=== PATIENT | male | born 1975 | race Caucasian/White ===

== ENCOUNTER 2023-10-22 09:31 | Outpatient (AMB) | payer OTHER, SELFPAY ==
[2023-10-22 09:35] VITALS: BP 112/68; PULSE 81; TEMP 36.8; O2SAT 98; BMI 30.7
--- NOTE | 2023-10-22 09:35 | MHC.PC.OV ---
Vital Signs 10/22/23 09:35 Height 5 ft 6 in Weight 190 lb 6 oz BMI 30.7 BP 112/68 Blood Pressure Location Lt brachial Position Sitting Pulse 81 Pulse Source Pulse Oximeter Temp 98.3 F Temp Source Oral Pulse Oximetry (%) 98 Oxygen Delivery Method Room Air Intake Visit Reasons: New patient-req physical Intake Note: Patient is here to establish care, last seen at [facility] a year ago. Patient would like refill on his Levothyroxine. Allergies No Known Allergies Allergy (Verified 10/22/23 09:38) Tobacco use date assessed: 10/22/23 Dental Screening Dental Screen Date: 10/22/23 Did you have a dental visit in the last 12 months?: Yes Did you have a dental problem in the last 6 months where you did not have access to dental care?: No Was dental information given to patient?: Patient has dentist HPI New patient-req physical HPI Details New patient Prior PCP:? [facility] Last office visit/CPE:??1?year?ago Acute issue(s): Refills?on?levothyroxine PMHx: ?Hypothyroid, GERD - resolved SurgHx: Cyst removal FHx: Mom: HTN, Thyroid dz. Dad: HTN, Thyroid Dz, Pancreatic CA SocHx: Nonsmoker. EtOH 3-4x a month. 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 1. Little interest or pleasure in doing things: not at all 2. Feeling down, depressed, or hopeless: not at all 3. Trouble falling or staying asleep, or sleeping too much: nearly every day 4. Feeling tired or having little energy: not at all 5. Poor appetite or overeating: not at all 6. Feeling bad about yourself - or that you are a failure or have let yourself or your family down: not at all 7. Trouble concentrating on things, such as reading the newspaper or watching television: not at all 8. Moving or speaking so slowly that other people could have noticed. Or the opposite - being so fidgety or restless that you have been moving around a lot more than usual: not at all 9. Thoughts that you would be better off or of hurting yourself in some way: not at all Total score: 3 Source: Developed by Drs. Omar Munoz, Tiara Chandler, Choco Reid and colleagues, with an educational pattie from [employer]. Thrive Questionnaire Date Thrive assessed: 10/22/23 I am a: Patient What is your living situation today?: I have a steady place to live Within the past 12 months, did the food you bought not last and you didn't have the money to get more?: Never true Within the past 12 months, did you worry whether your food would run out before you got money to buy more?: Never true Do you have trouble paying for medicines?: No Do you have trouble getting transportation to medical appointments?: No Do you have trouble paying your heating and electricity bill?: No Do you have trouble taking care of your child, family member or friend?: No Do you have trouble with day-to-day activities such as bathing, preparing meals, shopping, managing finances, etc.?: No Are you currently unemployed and looking for a job?: No Are you interested in more education?: No AUDIT C Alcohol Use Questionnaire (AUDIT-C) 1. How often do you have a drink containing alcohol?: 2-4 times a month 2. How many drinks containing alcohol do you have on a typical day when you are drinking?: 3 or 4 3. How often do you have six or more drinks on one occasion?: Less than monthly Total Score: 4 PABLO-7 AMB Questionnaire PABLO-7 Date PABLO - 7 assessed: 10/22/23 Feeling nervous, anxious, or on edge: 0 = Not at all Not being able to stop or control worryin = Not at all Worrying too much about different things: 3 = Nearly every day Trouble relaxin = Not at all Being so restless that it is hard to sit still: 0 = Not at all Becoming easily annoyed or irritable: 0 = Not at all Feeling afraid as if something awful might happen: 0 = Not at all Total PABLO-7 score (0-4 normal; 5-9 mild; 10-14 moderate; 15-21 severe): 3 Source: Developed by Drs. Omar Munoz, Tiara Chandler, Choco Reid and colleagues, with an educational pattie from [employer]. Review of Systems Const Denies chills, Denies fatigue, Denies fever(s), Denies headache(s) and Denies weakness ENT Denies dizziness and Denies headache(s) Card Denies chest pain, Denies lightheadedness, Denies dyspnea and Denies other (Palpitations) Resp Denies cough, Denies dyspnea, Denies wheezing and Denies other ( shortness of breath) Musc Denies numbness and Denies tingling Neuro Denies dizziness, Denies headache(s), Denies numbness, Denies tingling, Denies paresthesias and Denies weakness Psych Denies anxiety and Denies depression Endo Denies fatigue Aller/Immun Denies wheezing Physical exam (Primary Care) Vital Signs: Last Vital Signs Temp 98.3 F 10/22/23 09:35 Pulse 81 10/22/23 09:35 BP 112/68 10/22/23 09:35 Pulse Ox 98 10/22/23 09:35 Oxygen Delivery Method Room Air 10/22/23 09:35 BMI result Body Mass Index 30.7 Tobacco/Smoking Status: Tobacco use Status Tobacco use date assessed 10/22/23 10/22/23 09:53 Patient Tobacco Use Status Never used Tobacco 10/22/23 09:53 e-Cigarette/Vaping Use Never Used 10/22/23 09:53 PHQ-9: PHQ-9 Score PHQ-9: Total score 3 10/22/23 09:53 Thrive Assessment: Date of Thrive Assessment Date Thrive assessed 10/22/23 10/22/23 09:53 Const General: no acute distress and well developed Nutritional Appearance: well nourished Orientation/consciousness: patient oriented x3 [facility] Head: Yes normocephalic and Yes atraumatic Eyes General: appearance normal, both eyes and all related structures Pupils: Equal, round and reactive pupils present EOM: EOMs intact bilaterally Resp Effort & Inspection: normal respiratory effort Auscultation: clear to auscultation bilaterally Cardio Rate: regular rate Rhythm: regular rhythm Heart sounds: S1 normal heart sound present, S2 normal heart sound present, no gallops, no murmurs and no rubs Neuro General: patient oriented x3 and gait normal Cranial nerves: Yes Equal, round and reactive pupils present Psych Affect: normal affect Assessment and Plan Assessment & Plan (1) Hypothyroidism: Code(s): E03.9 - Hypothyroidism, unspecified Plan: Patient?takes?levothyroxine?75?mcg?daily?but?has?been?out?of?his?medication?for?about?a?month. Checking?labs?today?and?resuming?his?levothyroxine. Will?repeat?labs?prior?to?his?next?visit?in?a?couple?of?months?and?adjust?medication?if?needed. (2) Laboratory exam ordered as part of routine general medical examination: Code(s): Z00.00 - Encounter for general adult medical examination without abnormal findings Plan: Check?labs Orders: Orders Triiodothyronine T3 Total Today E03.9 - Hypothyroidism, unspecified TSH reflex Free T4 Today Z00.00 - Encounter for general adult medical examination without abnormal findings UA and rflx microscopic Today Z00.00 - Encounter for general adult medical examination without abnormal findings Lipid Panel Today Z00.00 - Encounter for general adult medical examination without abnormal findings Comprehensive Cardale. Panel Fast Today Z00.00 - Encounter for general adult medical examination without abnormal findings Free T4 (Free Thyroxine) 1 Month E03.9 - Hypothyroidism, unspecified Thyroid Stimulating Hormone 1 Month E03.9 - Hypothyroidism, unspecified Free T4 (Free Thyroxine) Today E03.9 - Hypothyroidism, unspecified Microalbumin, Random (w Creat) Today I10 - Essential (primary) hypertension Prostate Specific Antigen Scr Today Z12.5 - Encounter for screening for malignant neoplasm of prostate Triiodothyronine T3 Total 1 Month E03.9 - Hypothyroidism, unspecified Medications: New levothyroxine 75 mcg PO DAILY 90 tabs 2RF 90 days Coding Level of Care Code New Pt Level 3 (76302) Diagnoses Hypothyroidism E03.9 Laboratory exam ordered as part of routine general medical examination Z00.00
== END 2023-10-22 10:18 | disposition home or self-care (01) ==
PROVIDERS: PCP Family Medicine; Visit Provider Family Medicine
DX: E03.9 Hypothyroidism, unspecified (principal); Z00.00 Encounter for general adult medical examination without abnormal findings
CPT/HCPCS: 99203

== ENCOUNTER 2023-10-22 10:30 | Outpatient (REF) | payer OTHER, SELFPAY ==
[2023-10-22 12:07] LABS: Appearance Urine Clear; Color Urine Yellow; Glucose Urine UA Negative (Negative); Leukocyte Esterase Urine Negative (Negative); Nitrite Urine Negative (Negative); PH 5.5 (5.0-9.0); Urine Blood Negative (Negative); Urine Ketones Negative (Negative); Urine Protein Negative (Neg-Trace)
[2023-10-22 12:43] LABS: Microalbumin Urine < 5.0 mg/L
[2023-10-22 14:58] LABS: Alanine Aminotransferase 39 U/L (0-40); Albumin Level 4.6 g/dL (3.5-5.0); Alkaline Phosphatase 61 U/L (39-117); Anion Gap 12 (12-20); Aspartate Amino Transferase 29 U/L (5-37); Bilirubin Total 0.3 mg/dL (0.0-1.0); Blood Urea Nitrogen 24 mg/dL (9-16); Calcium 9.6 mg/dL (8.4-10.2); Carbon Dioxide 29 mmol/L (22-29); Chloride 100 mmol/L (96-108); Cholesterol 224 mg/dL (<200); Estimated Glomerular Filt Rate > 60; Glucose Fasting 86 mg/dL (60-99); HDL Cholesterol 55 mg/dL (>40); LDL Cholesterol Calculated 128 mg/dL (<100); Potassium 4.1 mmol/L (3.3-5.1); Sodium 137 mmol/L (135-145); Total Protein 7.7 g/dL (6.5-8.0); Triglycerides 207 mg/dL (<150)
[2023-10-22 15:13] LABS: Prostate Specific Antigen Scr 0.47 ng/mL (<0.05-4.0)
[2023-10-22 15:16] LABS: Free T4 (Free Thyroxine) 0.91 ng/dL (0.71-1.85); TSH reflex Free T4 10.52 uIU/mL (0.32-4.0)
[2023-10-23 08:04] LABS: Triiodothyronine T3 Total 134 ng/dL (76-181)
== END 2023-10-22 10:31 | disposition home or self-care (01) ==
LOC: HO.WFDLDS 10:30
PROVIDERS: Visit Provider Family Medicine
DX: Z00.00 Encounter for general adult medical examination without abnormal findings (principal); Z12.5 Encounter for screening for malignant neoplasm of prostate; E03.9 Hypothyroidism, unspecified; I10 Essential (primary) hypertension
CPT/HCPCS: 36415; 80053; 80061; 81003; 82043; 82570; 84153; 84439; 84443; 84480

== ENCOUNTER 2024-01-10 12:20 | Outpatient (REF) | payer OTHER, SELFPAY ==
[2024-01-10 15:11] LABS: Free T4 (Free Thyroxine) 0.96 ng/dL (0.71-1.85); Thyroid Stimulating Hormone 6.51 uIU/mL (0.32-4.0)
[2024-01-11 14:33] LABS: Triiodothyronine T3 Total 98 ng/dL (76-181)
== END 2024-01-10 12:21 | disposition home or self-care (01) ==
LOC: HO.WFDLDS 12:20
PROVIDERS: Visit Provider Family Medicine
DX: E03.9 Hypothyroidism, unspecified (principal)
CPT/HCPCS: 36415; 84439; 84443; 84480

== ENCOUNTER 2024-01-27 11:46 | Outpatient (AMB) | payer OTHER, SELFPAY ==
[2024-01-27 11:53] VITALS: BP 108/58; PULSE 63; O2SAT 98; BMI 31.7
--- NOTE | 2024-01-27 11:53 | A.OFFPC_ITS ---
Vital Signs 01/27/24 11:53 Height 5 ft 6 in Weight 196 lb 2 oz BMI 31.7 BP 108/58 L Blood Pressure Location Lt brachial Position Sitting Pulse 63 Pulse Source Pulse Oximeter Pulse Oximetry (%) 98 Oxygen Delivery Method Room Air Intake Visit Reasons: CPE with f/u labs and health maint. Intake Note: Patient is here for his physical today. Allergies No Known Allergies Allergy (Verified 10/22/23 09:38) Medication List - Last Reconciled 01/27/24 by Immanuel Nicole MD levothyroxine 88 mcg PO DAILY 90 days Tobacco use date assessed: 10/22/23 Dental Screening Dental Screen Date: 10/22/23 HPI CPE with f/u labs and health maint. HPI Details 48 y/o male presents for a CPE with f/u labs and health maintenance. Labs were drawn 10/22/23. Reviewed labs with pt. Triglycerides 207. TC 224. LDL 128. HDL 55. TSH elevated at 10.52. Repeat TSH level drawn 01/10/24 and improved to 6.51. 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 Omar Munoz, Tiara Chandler, Choco Reid and colleagues, with an educational pattie from [employer]. Review of Systems Const Denies chills, Denies fatigue, Denies fever(s), Denies headache(s) and Denies weakness Eyes Denies change in vision ENT Denies dizziness, Denies headache(s), Denies hearing loss, Denies nasal congestion, Denies sinus pain, Denies sinus pressure and Denies sore throat Card Denies chest pain, Denies lightheadedness, Denies dyspnea and Denies other (palpitations) Resp Denies cough, Denies dyspnea and Denies wheezing GI Denies abdominal pain, Denies melena, Denies hematochezia, Denies change in bowel habits, Denies dyspepsia and Denies nausea Denies hematuria and Denies dysuria Musc Denies abnormal gait, Denies myalgias, Denies arthralgias, Denies numbness and Denies tingling Skin/Breast Denies rash, Denies unusual bruising and Denies wounds Neuro Denies abnormal gait, Denies dizziness, Denies headache(s), Denies memory loss, Denies numbness, Denies Sensory deficit (Neuro), Denies tingling and Denies weakness Psych Denies anxiety, Denies depression and Denies memory loss Endo Denies cold intolerance, Denies fatigue, Denies heat intolerance, Denies polydipsia and Denies polyuria Lui Seduardo/Lymph Denies easy bleeding and Denies easy bruising Aller/Immun Denies wheezing Physical exam (Primary Care) Vital Signs: Last Vital Signs Pulse 63 01/27/24 11:53 BP 108/58 L 01/27/24 11:53 Pulse Ox 98 01/27/24 11:53 Oxygen Delivery Method Room Air 01/27/24 11:53 BMI result Body Mass Index 31.7 Tobacco/Smoking Status: Tobacco use Status Tobacco use date assessed 10/22/23 01/27/24 11:56 Patient Tobacco Use Status Never used Tobacco 01/27/24 11:56 e-Cigarette/Vaping Use Never Used 01/27/24 11:56 Thrive Assessment: Date of Thrive Assessment Date Thrive assessed 10/22/23 01/27/24 11:56 Const General: no acute distress, well developed, alert and awake Nutritional Appearance: well nourished Orientation/consciousness: patient oriented x3 [facility] Head: Yes normocephalic and Yes atraumatic Ears: hearing grossly normal bilaterally and TM's normal bilaterally General nose exam: Normal external nose present and Normal nares present Mouth: Normal oral and palatal mucosa present and moist mucous membranes Teeth and gingiva: dentition normal Throat: Yes posterior oropharynx normal Eyes General: appearance normal, both eyes and all related structures Pupils: Equal, round and reactive pupils present and Pupil accommodation reflex normal EOM: EOMs intact bilaterally Neck Neck: Yes normal visual inspection, Yes no lymphadenopathy and Yes trachea midline Thyroid: Thyroid normal Carotids: no bruits Lymphatic: no lymphadenopathy noted Chest Chest palpation & inspection: normal inspection of the chest Resp Effort & Inspection: normal respiratory effort Auscultation: clear to auscultation bilaterally Cardio Rate: regular rate Rhythm: regular rhythm Heart sounds: S1 normal heart sound present, S2 normal heart sound present, no gallops, no murmurs and no rubs Bruits: no abdominal aortic bruits and no carotid bruits GI Palpation (GI): No Abdominal aortic bruit present, Soft to palpation, nontender, No hepatosplenomegaly present and No Rebound tenderness present Auscultation: normal bowel sounds General: Yes no CVA tenderness Back/Spine/Pelvis Back: no CVA tenderness Cervical Spine: cervical ROM normal and No Cervical spine tenderness Thoracic/Lumbar Spine: thoraco-lumbar ROM normal, No pain with thoraco-lumbar ROM, No thoracic spinal tenderness and No lumbar spinal tenderness Skin Lesions: no lesions Rashes: no rashes Trauma: no lacerations or abrasions Wounds: no wounds Nails: normal Neuro General: patient oriented x3 Cranial nerves: Yes Equal, round and reactive pupils present Cognition (Neuro): normal cognition Gait exam (Neuro): Normal gait present Motor exam (neuro): 5/5 motor strength present throughout Sensory Exam: No Sensory deficit (Neuro) Deep tendon reflexes (DTR's): Right patellar reflex intensity grade: 2+ and Left patellar reflex intensity grade: 2+ Extrem General: Yes normal to inspection and No edema Psych Appearance: grossly normal Affect: normal affect Attitude: cooperative Thought process: Normal thought process present Assessment and Plan Assessment & Plan (1) Adult general medical exam: Code(s): Z00.00 - Encounter for general adult medical examination without abnormal findings Plan: 48-year-old?male?presents?for?complete?physical?exam Encouraged?healthy?diet?with?active?lifestyle?and?plenty?of?exercise (2) Hypertriglyceridemia: Code(s): E78.1 - Pure hyperglyceridemia Plan: Encouraged?diet?low?in?saturated?fats?and?cholesterol?as?well?as?low?in?sugars (3) Hypothyroidism: Code(s): E03.9 - Hypothyroidism, unspecified Plan: TSH?level ?was?high?as?patient?was?off?his?medication?so?we?restarted?this?and?when?levels ?came?back?they?showed?his?TSH?had?improved?but?was?still?high?so?adjustment?was ?made?to?his?medication - he?is?now?taki ng?levothyroxine?88?mcg?daily?and?tolerating?this.??Due?to?recheck?in?a?couple?o f?months He?will?get?his?labs?drawn?and?we?can?follow-up?by?telemedicine (4) Screening for colon cancer: Code(s): Z12.11 - Encounter for screening for malignant neoplasm of colon Plan: Due?for?colonoscopy Ordered (5) Screening for prostate cancer: Code(s): Z12.5 - Encounter for screening for malignant neoplasm of prostate Plan: PSA?is?within?normal?limits. Normal?urine?stream Will?continue?to?screen?annual Orders: Orders Free T4 (Free Thyroxine) Today E03.9 - Hypothyroidism, unspecified Triiodothyronine T3 Total Today E03.9 - Hypothyroidism, unspecified Basic Metabolic Panel Today E03.9 - Hypothyroidism, unspecified, Z00.00 - Encounter for general adult medical examination without abnormal findings Thyroid Stimulating Hormone Today E03.9 - Hypothyroidism, unspecified Referrals Gastroenterology Referral Z12.11 - Encounter for screening for malignant neoplasm of colon Coding Level of Care Code Est Pt Level 3 (71105) Est Pt Prev Care 40-64y(28732) Diagnoses Adult general medical exam Z00.00 Hypertriglyceridemia E78.1 Hypothyroidism E03.9 Screening for colon cancer Z12.11 Screening for prostate cancer Z12.5
== END 2024-01-27 12:36 | disposition home or self-care (01) ==
PROVIDERS: PCP Family Medicine; Visit Provider Family Medicine
DX: Z00.00 Encounter for general adult medical examination without abnormal findings (principal); E78.1 Pure hyperglyceridemia; E03.9 Hypothyroidism, unspecified; Z12.11 Encounter for screening for malignant neoplasm of colon; Z12.5 Encounter for screening for malignant neoplasm of prostate
CPT/HCPCS: 99396